=== PATIENT | male | born 1960 | race Caucasian/White ===

== ENCOUNTER 2018-09-16 12:40 | Day surgery (SDC) | payer OTHER ==
[2018-09-16] MEDS ORDERED: ONDANSETRON 4 MG INJ IV (13:30)
[2018-09-16] MEDS ORDERED: LIDOCAINE 2% (SDV) 5 ML INJ (13:50)
[2018-09-16] MEDS ORDERED: PROPOFOL 40 ML (13:50)
[2018-09-16] MEDS ORDERED: PROPOFOL 20 ML (14:33)
== END 2018-09-16 16:36 | disposition home or self-care (01) ==
LOC: GIL 12:40
DX: Z12.11 Encounter for screening for malignant neoplasm of colon (principal); D12.5 Benign neoplasm of sigmoid colon; K64.8 Other hemorrhoids
CPT/HCPCS: 45380; 88305